=== PATIENT | male | born 1975 | race Caucasian/White ===

== ENCOUNTER 2021-04-29 07:35 | Emergency (ER) | payer OTHER ==
[~2021-04-29] VITALS: Ht 177.8 cm; Wt 97.5 kg
[~2021-04-29 07:35] MED LIST: ALKA-SELTZER P1 EA11 PO; ALKA-SELTZER PL25 MG PO; CIPROFLOXACIN500 M1 PO; DILAUDID2 M1 PO; FLAGYL500 MG PO; FLOMAX PO; LEVSIN0.125 MG PO; LOPERAMIDE 2 MG2 M1 PO; NOHOMEMEDICATIONS; PERCOCET 5-3251 EACH PO; TAMSULOSIN HCL0.4 MG PO; TRAMADOL 50 MG50 MG PO; ZPAK PO
[2021-04-29 07:45] VITALS: BP 131/97
[2021-04-29 08:51] LABS: INFLUENZA A ANTIGEN Negative (Negative); INFLUENZA B ANTIGEN Negative (Negative)
== END 2021-04-29 08:44 | disposition home or self-care (01) ==
LOC: M.ERS 07:35
PROVIDERS: Family Medicine
DX: U07.1 COVID-19 (principal); I10 Essential (primary) hypertension; Z87.442 Personal history of urinary calculi